=== PATIENT | female | born 1940 | race Caucasian/White ===

== ENCOUNTER 2018-06-14 10:26 | Observation (INO) | payer OTHER ==
[2018-06-14 10:57] LABS: Absolute Lymphocytes (CBC) 1.6 K/uL (0.7-4.9); Absolute Monocytes 0.9 K/uL (0.1-1.3); Absolute Neutrophil 5.1 K/uL (1.8-8.0); Basophils % 0.9 % (0-1.3); Hematocrit 40.6 % (36.0-45.0); Lymphocytes % 20.6 % (15.3-44.8); MCH 30.2 pg (27.0-35.0); MCV 88.1 fL (80-100); MPV 9.1 fL (7.6-11.3); Monocytes % 11.1 % (3.3-12.3); RBC Red Blood Cell Count 4.61 M/uL (3.86-4.86)
[2018-06-14 11:02] LABS: Protime INR 0.97
--- NOTE | 2018-06-14 11:04 | RAD REPORT ---
EXAM DESCRIPTION: CT - Ct Stroke Brain Wo Cont - 06/14/2018 10:56 am CLINICAL HISTORY: Right-sided numbness COMPARISON: 2008 TECHNIQUE: Computed axial tomography of the head was obtained. IV contrast was not requested. All CT scans are performed using dose optimization technique as appropriate and may include automated exposure control or mA/KV adjustment according to patient size. FINDINGS: An intracranial bleed is not seen . The ventricles are normal in caliber. No extra-axial fluid collection is noted. Mild low-density areas within periventricular, deep and sub cortical white matter likely represent ischemic changes secondary to small vessel disease Fluid within the sinuses/ mastoids is not seen. IMPRESSION: No acute intracranial abnormality is seen. If patient's symptoms persist MRI of the bra in would be recommended. The exam was discussed with Dr. Hahn in the Emergency Room 10:53 a.m. 05/31
[2018-06-14] MEDS ORDERED: ASPIRIN 81 MG CHEWABLE TABLET ONE (11:16)
[2018-06-14 11:20] LABS: BUN Blood Urea Nitrogen 15 mg/dL (7-18); Bicarbonate 28 mmol/L (21-32); Glucose Level 98 mg/dL (74-106); Magnesium 2.5 mg/dL (1.8-2.4); Sodium Level 142 mmol/L (136-145); Troponin (Emerg Dept Use Only) < 0.02 ng/mL (0.0-0.045)
--- NOTE | 2018-06-14 12:03 | RAD REPORT ---
EXAM DESCRIPTION: Gabriel Single View06/14/2018 11:36 am CLINICAL HISTORY: Code stroke/numbness/psoriasis COMPARISON: 2008 FINDINGS: The lungs appear clear of acute infiltrate. The heart is normal size IMPRESSION: No acute abnormalities displayed
--- NOTE | 2018-06-14 13:22 | EDPHYS ---
Physician Documentation [facility] Name: Cathi Farrar Age: 77 yrs Sex: Female : 1940 Arrival Date: 06/14/2018 Time: 10:29 Bed 6 Private MD: Mynor Rinaldi E ED Physician Mynor Hahn HPI: 06/14 10:35 This 77 yrs old Female presents to ER via Ambulatory with complaints of jr8 Unbalance, Facial numbness. 10:35 The patient's problem is reported as paresthesias, in right side of face, visual jr8 difficulty. Onset: The symptoms/episode began/occurred acutely, today, at 10:00. Duration: This was a single incident. Context: symptoms became apparent at 10:00. occurred at home, occurred while the patient was at rest. The symptoms are alleviated by nothing. The symptoms are aggravated by nothing. Associated signs and symptoms: The patient has no apparent associated signs or symptoms. Severity of symptoms: At their worst the symptoms were moderate in the emergency department the symptoms have resolved. Patient's baseline: Neuro: alert and fully oriented, Motor: no deficits, Ambulation: walks without assistance, Speech: normal. The patient has not experienced similar symptoms in the past. The patient has not recently seen a physician. History of TIA in past. Stated that she was putting something away and noticed that she had numbness to right face and double vision to right eye. Had felt unbalanced. Episode lasted for a few minutes and then started to decrease. Now asymptomatic . Historical: - Allergies: 10:40 Codeine; aj 10:40 desporaine (anesthesia); aj - Home Meds: 10:40 otesla [Active]; aj - PMHx: 10:40 TIA; psoriatic arthritis; aj - PSHx: 10:40 Knee surgery; aj - Immunization history:: Adult Immunizations up to date. - Social history:: Smoking status: Patient/guardian denies using tobacco. - Ebola Screening: : Patient negative for fever greater than or equal to 101.5 degrees Fahrenheit, and additional compatible Ebola Virus Disease symptoms Patient denies exposure to infectious person Patient denies travel to an Ebola-affected area in the 21 days before illness onset No symptoms or risks identified at this time. ROS: 10:35 Eyes: Negative for injury, pain, redness, and discharge, ENT: Negative for injury, jr8 pain, and discharge, Neck: Negative for injury, pain, and swelling, Cardiovascular: Negative for chest pain, palpitations, and edema, Respiratory: Negative for shortness of breath, cough, wheezing, and pleuritic chest pain, Abdomen/GI: Negative for abdominal pain, nausea, vomiting, diarrhea, and constipation, Back: Negative for injury and pain, MS/Extremity: Negative for injury and deformity, Skin: Negative for injury, rash, and discoloration. 10:35 Neuro: Positive for numbness, visual changes, Negative for altered mental status, dizziness, gait disturbance, headache, hearing loss, loss of consciousness, seizure activity, speech changes, syncope, near syncope, tingling, tinnitus, tremor, weakness. Exam: 10:35 Radiologist reports: No acute findings jr8 10:35 Eyes: Pupils equal round and reactive to light, extra-ocular motions intact. Lids and lashes normal. Conjunctiva and sclera are non-icteric and not injected. Cornea within normal limits. Periorbital areas with no swelling, redness, or edema. ENT: Nares patent. No nasal discharge, no septal abnormalities noted. Tympanic membranes are normal and external auditory canals are clear. Oropharynx with no redness, swelling, or masses, exudates, or evidence of obstruction, uvula midline. Mucous membranes moist. Neck: Trachea midline, no thyromegaly or masses palpated, and no cervical lymphadenopathy. Supple, full range of motion without nuchal rigidity, or vertebral point tenderness. No Meningismus. Cardiovascular: Regular rate and rhythm with a normal S1 and S2. No gallops, murmurs, or rubs. Normal PMI, no JVD. No pulse deficits. Respiratory: Lungs have equal breath sounds bilaterally, clear to auscultation and percussion. No rales, rhonchi or wheezes noted. No increased work of breathing, no retractions or nasal flaring. Abdomen/GI: Soft, non-tender, with normal bowel sounds. No distension or tympany. No guarding or rebound. No evidence of tenderness throughout. Back: No spinal tenderness. No costovertebral tenderness. Full range of motion. Skin: Warm, dry with normal turgor. Normal color with no rashes, no lesions, and no evidence of cellulitis. MS/ Extremity: Pulses equal, no cyanosis. Neurovascular intact. Full, normal range of motion. Neuro: Awake and alert, GCS 15, oriented to person, place, time, and situation. Cranial nerves II-XII grossly intact. Motor strength 5/5 in all extremities. Sensory grossly intact. Cerebellar exam normal. Normal gait. Vital Signs: 10:33 BP 134 / 89; Pulse 75; Resp 16; Pulse Ox 100% on R/A; Weight 53.52 kg; Height 5 ft. 3 aj in. (160.02 cm); 11:13 BP 123 / 71; Pulse 66; Resp 14; Pulse Ox 97% on R/A; Pain 0/10; ch 11:23 Temp 97.5(TE); la1 11:43 BP 124 / 65; Pulse 66; Resp 16; Temp 97.1; Pulse Ox 100% on R/A; la1 13:35 BP 127 / 65; Pulse 71; Resp 16; Pulse Ox 97% on R/A; la1 14:03 BP 126 / 72; Pulse 64; Resp 16; Pulse Ox 100% on R/A; la1 14:49 BP 129 / 71; Pulse 73; Resp 16; Pulse Ox 98% on R/A; la1 10:33 Body Mass Index 20.90 (53.52 kg, 160.02 cm) aj NIH Stroke Scale Scores: 10:35 NIHSS Score: 0 jr8 10:51 NIHSS Score: 0 la1 10:52 NIHSS Score: 0 la1 MDM: 10:39 Patient medically screened. [facility] 13:17 Data reviewed: vital signs, nurses notes, lab test result(s), EKG, radiologic studies, [facility] CT scan, and as a result, I will admit patient. Data interpreted: Pulse oximetry: on room air is 100 %. Interpretation: normal. Counseling: I had a detailed discussion with the patient and/or guardian regarding: the historical points, exam findings, and any diagnostic results supporting the discharge/admit diagnosis, lab results, radiology results, the need for further work-up and treatment in the hospital. ED course: Dr. Sandoval consulted and will see patient in Hospital . 06/14 10:39 Order name: Troponin (emerg Dept Use Only) [facility] 06/14 10:39 Order name: Magnesium jr 06/14 10:39 Order name: Basic Metabolic Panel 8 06/14 10:39 Order name: CBC with Diff; Complete Time: 11:31 8 06/14 10:39 Order name: Protime (+inr); Complete Time: 11:31 8 06/14 10:39 Order name: Urine Microscopic Only; Complete Time: 13:55 8 06/14 10:39 Order name: CT Stroke Brain w/o Contrast; Complete Time: 11:31 8 06/14 10:39 Order name: Stroke CXR 1 View; Complete Time: 12:14 8 06/14 10:40 Order name: Troponin (Emerg Dept Use Only); Complete Time: 11:31 EDMS 06/14 10:40 Order name: Magnesium; Complete Time: 11:31 EDMS 06/14 10:40 Order name: Basic Metabolic Panel; Complete Time: 11:31 EDMS 06/14 13:27 Order name: Cholesterol Level; Complete Time: 13:55 EDMS 06/14 13:27 Order name: Triglycerides Level; Complete Time: 13:55 EDMS 06/14 14:00 Order name: Urine Dipstick--Ancillary (enter results) 06/14 10:39 Order name: EKG; Complete Time: 10:40 8 06/14 10:39 Order name: Accucheck; Complete Time: 10:40 06/14 10:39 Order name: Cardiac monitoring; Complete Time: 10:54 06/14 10:39 Order name: EKG - Nurse/Tech; Complete Time: 10:54 06/14 10:39 Order name: IV Saline Lock; Complete Time: 10:54 06/14 10:39 Order name: Labs collected and sent; Complete Time: 10:54 06/14 10:39 Order name: NPO; Complete Time: 10:40 06/14 10:39 Order name: O2 Per Protocol; Complete Time: 10:54 06/14 10:39 Order name: O2 Sat Monitoring; Complete Time: 10:54 06/14 10:39 Order name: Stroke Swallow Screen; Complete Time: 10:54 06/14 10:39 Order name: Urine Dipstick-Ancillary (obtain specimen); Complete Time: 13:35 8 06/14 12:57 Order name: US Carotid Artery Bilateral ag 06/14 13:03 Order name: Head angio; Complete Time: 13:55 EDMS Administered Medications: 11:12 Drug: Aspirin Chewable Tablet 324 mg Route: PO; 13:30 Follow up: Response: No adverse reaction la1 13:56 Drug: Atorvastatin 40 mg Route: PO; la1 14:04 Follow up: Response: No adverse reaction la1 Point of Care Testing: Blood Glucose: 10:38 Blood Glucose: 116 mg/dL; la1 Ranges: Critical Glucose Levels:Adult <50 mg/dl or >400 mg/dl <40 mg/dl or >180 mg/dl Disposition: 06/14/18 13:21 Hospitalization ordered by Jaziel Hastings for Observation. Preliminary diagnosis is Transient cerebral ischemic attack, unspecified. - Bed requested for Telemetry/MedSurg (observation). - Status is Observation. la1 - Condition is Stable. - Problem is new. - Symptoms have improved. UTI on Admission? No NIH Stroke Scale - NIH Stroke Score Date: 06/14/2018 Time: 10:35 Total Score = 0 1a. Level of Consciousness (LOC) - 0(Alert) 1b. Level of Consciousness (LOC) (Year \T\ Age) - 0(Both) 1c. LOC Commands (Open \T\ Closes Eyes/Contract Processor) - 0(Both) 2. Best Gaze (Lateral Gaze Paresis) - 0(Normal) 3. Visual Field Loss - 0(No visual loss) 4. Facial Palsy - 0(Normal) 5a. Left Arm: Motor (10-second hold) - 0(No drift) 5b. Right Arm: Motor (10-second hold) - 0(No drift) 6a. Left Leg: Motor (5-second hold - always test supine) - 0(No drift) 6b. Right Leg: Motor (5-second hold - always test supine) - 0(No drift) 7. Limb Ataxia (finger/nose \T\ heel/tai - test with eyes open) - 0(Absent) 8. Sensory Loss (pinprick arms/legs/face) - 0(Normal) 9. Best Language: Aphasia (description/naming/reading) - 0(No aphasia) 10. Dysarthria (speech clarity - read or repeat words) - 0(Normal) 11. Extinction and Inattention (visual/tactile/auditory/spatial/personal) - 0(No abnormality) Initials: jr8 NIH Stroke Scale - NIH Stroke Score Date: 06/14/2018 Time: 10:51 Total Score = 0 1a. Level of Consciousness (LOC) - 0(Alert) 1b. Level of Consciousness (LOC) (Year \T\ Age) - 0(Both) 1c. LOC Commands (Open \T\ Closes Eyes/Contract Processor) - 0(Both) 2. Best Gaze (Lateral Gaze Paresis) - 0(Normal) 3. Visual Field Loss - 0(No visual loss) 4. Facial Palsy - 0(Normal) 5a. Left Arm: Motor (10-second hold) - 0(No drift) 5b. Right Arm: Motor (10-second hold) - 0(No drift) 6a. Left Leg: Motor (5-second hold - always test supine) - 0(No drift) 6b. Right Leg: Motor (5-second hold - always test supine) - 0(No drift) 7. Limb Ataxia (finger/nose \T\ heel/tai - test with eyes open) - 0(Absent) 8. Sensory Loss (pinprick arms/legs/face) - 0(Normal) 9. Best Language: Aphasia (description/naming/reading) - 0(No aphasia) 10. Dysarthria (speech clarity - read or repeat words) - 0(Normal) 11. Extinction and Inattention (visual/tactile/auditory/spatial/personal) - 0(No abnormality) Initials: la1 NIH Stroke Scale - NIH Stroke Score Date: 06/14/2018 Time: 10:52 Total Score = 0 1a. Level of Consciousness (LOC) - 0(Alert) 1b. Level of Consciousness (LOC) (Year \T\ Age) - 0(Both) 1c. LOC Commands (Open \T\ Closes Eyes/Contract Processor) - 0(Both) 2. Best Gaze (Lateral Gaze Paresis) - 0(Normal) 3. Visual Field Loss - 0(No visual loss) 4. Facial Palsy - 0(Normal) 5a. Left Arm: Motor (10-second hold) - 0(No drift) 5b. Right Arm: Motor (10-second hold) - 0(No drift) 6a. Left Leg: Motor (5-second hold - always test supine) - 0(No drift) 6b. Right Leg: Motor (5-second hold - always test supine) - 0(No drift) 7. Limb Ataxia (finger/nose \T\ heel/tai - test with eyes open) - 0(Absent) 8. Sensory Loss (pinprick arms/legs/face) - 0(Normal) 9. Best Language: Aphasia (description/naming/reading) - 0(No aphasia) 10. Dysarthria (speech clarity - read or repeat words) - 0(Normal) 11. Extinction and Inattention (visual/tactile/auditory/spatial/personal) - 0(No abnormality) Initials: samantha Addendum: 06/16/2018 08:05 Co-signature as Attending Physician, Mynor Hahn MD I agree with the pr assessment and plan of care. Signatures: Dispatcher [employer] EDHaylee Nevarez, RN Marjorie Menjivar ch RN Amy Soares RN Rosendo Muñoz PA PA jr8 Osman Zepeda RN RN la1 Appiah, William, MD MD pr Corrections: (The following items were deleted from the chart) 06/14 13:45 13:21 Hospitalization Ordered by Jaziel Hastings MD for Observation. dw Preliminary diagnosis is Transient cerebral ischemic attack, unspecified. Bed requested for Telemetry/MedSurg (observation). Status is Observation. Condition is Stable. Problem is new. Symptoms have improved. UTI on Admission? No. jr8 15:06 13:45 06/14/2018 13:21 Hospitalization Ordered by Jaziel Hastings MD for la1 Observation. Preliminary diagnosis is Transient cerebral ischemic attack, unspecified. Bed requested for Telemetry/MedSurg (observation). Status is Observation. Condition is Stable. Problem is new. Symptoms have improved. UTI on Admission? No. dw
--- NOTE | 2018-06-14 13:22 | ER ---
Nurse's Notes [facility] Name: Cathi Farrar Age: 77 yrs Sex: Female : 1940 Arrival Date: 06/14/2018 Time: 10:29 Bed 6 Private MD: Mynor Rinaldi E Diagnosis: Transient cerebral ischemic attack, unspecified Presentation: 06/14 10:31 Presenting complaint: Patient states: At 1000 this AM while patient was cleaning her aj ear she noticed numbness in her right cheek and inability to focus right eye. Patient then noticed she was imbalanced. Patient reports all symptoms have resolved with the exception of the residual numbness to the right cheek. Ambulated in to ER with steady gait. Transition of care: patient was not received from another setting of care. Onset of symptoms was June 14, 2018 at 10:00. Risk Assessment: Do you want to hurt yourself or someone else? Patient reports no desire to harm self or others. Initial Sepsis Screen: Does the patient meet any 2 criteria? No. Patient's initial sepsis screen is negative. Does the patient have a suspected source of infection? No. Patient's initial sepsis screen is negative. Care prior to arrival: None. 10:31 Method Of Arrival: Ambulatory 10:31 Acuity: JONE 2 aj 10:33 No acute neurological deficit is noted. Pre-hospital glucose is not applicable to this patient. Triage Assessment: 10:40 The onset of the patients symptoms was June 14, 2018 at 10:00. General: Appears in aj no apparent distress. comfortable, Behavior is cooperative, anxious. Pain: Denies pain. Neuro: Level of Consciousness is awake, alert, obeys commands, Oriented to person, place, time, situation, Appropriate for age Skip Hoist Engineer are equal bilaterally Moves all extremities. Full function Gait is steady, Speech is normal, Facial symmetry appears normal, Pupils are PERRLA, Numbness in right cheek and right zygomatic area Reports blurred vision numbness balance issues. Respiratory: Airway is patent Respiratory effort is even, unlabored, Respiratory pattern is regular, symmetrical. Derm: Skin is intact, is healthy with good turgor, Skin is pink, warm \T\ dry. normal. Stroke Activation: Symptom onset < 3 hours Physician: Stroke Attending; Name: ; Notified At: ; Arrived At: Physician: Chief Stroke Resident; Name: ; Notified At: ; Arrived At: Physician: Stroke Resident; Name: ; Notified At: ; Arrived At: Physician: ED Attending; Name: ; Notified At: ; Arrived At: Physician: ED Resident; Name: ; Notified At: ; Arrived At: Historical: - Allergies: 10:40 Codeine; aj 10:40 desporaine (anesthesia); aj - Home Meds: 10:40 otesla [Active]; aj - PMHx: 10:40 TIA; psoriatic arthritis; aj - PSHx: 10:40 Knee surgery; aj - Immunization history:: Adult Immunizations up to date. - Social history:: Smoking status: Patient/guardian denies using tobacco. - Ebola Screening: : Patient negative for fever greater than or equal to 101.5 degrees Fahrenheit, and additional compatible Ebola Virus Disease symptoms Patient denies exposure to infectious person Patient denies travel to an Ebola-affected area in the 21 days before illness onset No symptoms or risks identified at this time. Screenin:51 Abuse screen: Denies threats or abuse. Nutritional screening: No deficits noted. la1 Tuberculosis screening: No symptoms or risk factors identified. The patient has not been NPO before screening. The patient is alert, able to follow commands. The patient does not exhibit slurred or garbled speech The patient is not exhibiting difficulty speaking. The patient does not exhibit difficulty understanding words. The patient is able to swallow own secretions with no drooling or need for suction. Patient tolerated one teaspoon of water. No drooling, immediate coughing, gurgling, or clearing of the throat was noted. The patient tolerated 90mL of water. No drooling, immediate coughing, gurgling, or clearing of the throat was noted. The patient passed the bedside swallow screening. Oral medications may be given as ordered. Contact Physician for further diet orders. Provider notified of bedside swallow screening results: Rosendo GARCIA. Fall Risk None identified. Assessment: 10:38 Reassessment: pt in CT at this time. la1 10:52 The patient has not been NPO before screening. The patient is alert, and able to follow la1 commands. The patient does not exhibit slurred or garbled speech. The patient is not exhibiting difficulty speaking. The patient does not exhibit difficulty understanding words. The patient is able to swallow own secretions with no drooling or need for suction. Patient tolerated one teaspoon of water. No drooling, immediate coughing, gurgling, or clearing of the throat was noted. The patient tolerated 90mL of water. No drooling, immediate coughing, gurgling, or clearing of the throat was noted. The patient passed the bedside swallow screening. Oral medications may be given as ordered. Contact Physician for further diet orders. Provider notified of bedside swallow screening results: Rosendo GARCIA. T-PA (Activase) Screening: Contraindications: Rapidly improving condition or minor deficit: Yes. General: Appears in no apparent distress. Behavior is calm, cooperative. Pain: Denies pain. Neuro: Level of Consciousness is awake, alert, obeys commands, Oriented to person, place, time, situation, Skip Hoist Engineer are equal bilaterally Moves all extremities. Full function Gait is steady, Speech is normal, Facial symmetry appears normal, Pupils are PERRLA. Cardiovascular: Capillary refill < 3 seconds Patient's skin is warm and dry. Respiratory: Airway is patent Respiratory effort is even, unlabored, Respiratory pattern is regular, symmetrical, Breath sounds are clear bilaterally. GI: No signs and/or symptoms were reported involving the gastrointestinal system. : No signs and/or symptoms were reported regarding the genitourinary system. 11:04 Reassessment: Pt states that at 1000 she experienced diplopia in her right eye and la1 facial numbness on the right side. Pt has since resolved, no complaints at this time, NIH-0. 12:00 Reassessment: Patient appears in no apparent distress at this time. No changes from la1 previously documented assessment. Patient and/or family updated on plan of care and expected duration. Pain level reassessed. Patient is alert, oriented x 3, equal unlabored respirations, skin warm/dry/pink. 13:35 Reassessment: Patient appears in no apparent distress at this time. No changes from la1 previously documented assessment. Patient and/or family updated on plan of care and expected duration. Pain level reassessed. Patient is alert, oriented x 3, equal unlabored respirations, skin warm/dry/pink. 14:03 Reassessment: Patient appears in no apparent distress at this time. No changes from la1 previously documented assessment. Patient and/or family updated on plan of care and expected duration. Pain level reassessed. Patient is alert, oriented x 3, equal unlabored respirations, skin warm/dry/pink. Vital Signs: 10:33 BP 134 / 89; Pulse 75; Resp 16; Pulse Ox 100% on R/A; Weight 53.52 kg; Height 5 ft. 3 aj in. (160.02 cm); 11:13 BP 123 / 71; Pulse 66; Resp 14; Pulse Ox 97% on R/A; Pain 0/10; ch 11:23 Temp 97.5(TE); la1 11:43 BP 124 / 65; Pulse 66; Resp 16; Temp 97.1; Pulse Ox 100% on R/A; la1 13:35 BP 127 / 65; Pulse 71; Resp 16; Pulse Ox 97% on R/A; la1 14:03 BP 126 / 72; Pulse 64; Resp 16; Pulse Ox 100% on R/A; la1 14:49 BP 129 / 71; Pulse 73; Resp 16; Pulse Ox 98% on R/A; la1 10:33 Body Mass Index 20.90 (53.52 kg, 160.02 cm) NIH Stroke Scale Scores: 10:35 NIHSS Score: 0 jr8 10:51 NIHSS Score: 0 la1 10:52 NIHSS Score: 0 la1 ED Course: 10:29 Patient arrived in ED. mr 10:30 Mynor Rinaldi MD is Private Physician. mr 10:33 Arm band placed on left wrist. Patient placed in an exam room, Transported to CT with nurse. 10:38 Triage completed. aj 10:39 [facility] jr8 10:39 Mynor Hahn MD is Attending Physician. jr8 10:45 CT completed. Patient moved to CT via stretcher. Patient moved back from CT. cw1 10:51 Osman Zepeda, RN is Primary Nurse. la1 10:52 Placed in gown. Bed in low position. Call light in reach. engine monitor on. Pulse ox la1 on. NIBP on. 10:52 Initial lab(s) drawn, by me, sent to lab. Inserted saline lock: 18 gauge in right ch forearm, using aseptic technique. Blood collected. 10:56 CT Stroke Brain w/o Contrast In Process Unspecified. EDMS 11:35 Stroke CXR 1 View In Process Unspecified. EDMS 13:19 Radiology exam delayed due to ot in CT. sg3 13:19 CT completed. Patient moved to CT via stretcher. Patient moved back from CT. cw1 13:19 Jaziel Hastings MD is Hospitalizing Provider. jr8 13:21 Head angio In Process Unspecified. EDMS 14:49 No provider procedures requiring assistance completed. Patient admitted, IV remains in la1 place. 14:53 Ultrasound completed. Patient tolerated well. sg3 Administered Medications: 11:12 Drug: Aspirin Chewable Tablet 324 mg Route: PO; ch 13:30 Follow up: Response: No adverse reaction la1 13:56 Drug: Atorvastatin 40 mg Route: PO; la1 14:04 Follow up: Response: No adverse reaction la1 Point of Care Testing: Blood Glucose: 10:38 Blood Glucose: 116 mg/dL; la1 Ranges: Outcome: 13:21 Decision to Hospitalize by Provider. jr8 14:50 Admitted to Med/surg accompanied by tech, via wheelchair, room 230, with chart. la1 14:50 Condition: stable 14:50 Instructed on the need for admit. 15:06 Patient left the ED. la1 NIH Stroke Scale - NIH Stroke Score Date: 06/14/2018 Time: 10:35 Total Score = 0 1a. Level of Consciousness (LOC) - 0(Alert) 1b. Level of Consciousness (LOC) (Year \T\ Age) - 0(Both) 1c. LOC Commands (Open \T\ Closes Eyes/Coin Dealer) - 0(Both) 2. Best Gaze (Lateral Gaze Paresis) - 0(Normal) 3. Visual Field Loss - 0(No visual loss) 4. Facial Palsy - 0(Normal) 5a. Left Arm: Motor (10-second hold) - 0(No drift) 5b. Right Arm: Motor (10-second hold) - 0(No drift) 6a. Left Leg: Motor (5-second hold - always test supine) - 0(No drift) 6b. Right Leg: Motor (5-second hold - always test supine) - 0(No drift) 7. Limb Ataxia (finger/nose \T\ heel/tai - test with eyes open) - 0(Absent) 8. Sensory Loss (pinprick arms/legs/face) - 0(Normal) 9. Best Language: Aphasia (description/naming/reading) - 0(No aphasia) 10. Dysarthria (speech clarity - read or repeat words) - 0(Normal) 11. Extinction and Inattention (visual/tactile/auditory/spatial/personal) - 0(No abnormality) Initials: jr8 NIH Stroke Scale - NIH Stroke Score Date: 06/14/2018 Time: 10:51 Total Score = 0 1a. Level of Consciousness (LOC) - 0(Alert) 1b. Level of Consciousness (LOC) (Year \T\ Age) - 0(Both) 1c. LOC Commands (Open \T\ Closes Eyes/Coin Dealer) - 0(Both) 2. Best Gaze (Lateral Gaze Paresis) - 0(Normal) 3. Visual Field Loss - 0(No visual loss) 4. Facial Palsy - 0(Normal) 5a. Left Arm: Motor (10-second hold) - 0(No drift) 5b. Right Arm: Motor (10-second hold) - 0(No drift) 6a. Left Leg: Motor (5-second hold - always test supine) - 0(No drift) 6b. Right Leg: Motor (5-second hold - always test supine) - 0(No drift) 7. Limb Ataxia (finger/nose \T\ heel/tai - test with eyes open) - 0(Absent) 8. Sensory Loss (pinprick arms/legs/face) - 0(Normal) 9. Best Language: Aphasia (description/naming/reading) - 0(No aphasia) 10. Dysarthria (speech clarity - read or repeat words) - 0(Normal) 11. Extinction and Inattention (visual/tactile/auditory/spatial/personal) - 0(No abnormality) Initials: la1 NIH Stroke Scale - NIH Stroke Score Date: 06/14/2018 Time: 10:52 Total Score = 0 1a. Level of Consciousness (LOC) - 0(Alert) 1b. Level of Consciousness (LOC) (Year \T\ Age) - 0(Both) 1c. LOC Commands (Open \T\ Closes Eyes/Coin Dealer) - 0(Both) 2. Best Gaze (Lateral Gaze Paresis) - 0(Normal) 3. Visual Field Loss - 0(No visual loss) 4. Facial Palsy - 0(Normal) 5a. Left Arm: Motor (10-second hold) - 0(No drift) 5b. Right Arm: Motor (10-second hold) - 0(No drift) 6a. Left Leg: Motor (5-second hold - always test supine) - 0(No drift) 6b. Right Leg: Motor (5-second hold - always test supine) - 0(No drift) 7. Limb Ataxia (finger/nose \T\ heel/tai - test with eyes open) - 0(Absent) 8. Sensory Loss (pinprick arms/legs/face) - 0(Normal) 9. Best Language: Aphasia (description/naming/reading) - 0(No aphasia) 10. Dysarthria (speech clarity - read or repeat words) - 0(Normal) 11. Extinction and Inattention (visual/tactile/auditory/spatial/personal) - 0(No abnormality) Initials: laNova Signatures: Dispatcher [employer] EDHaylee Nevarez, RN Amy Cueva ch RN Mel Bettencourt mr Landon, Caridad cw1 Rosendo Tinajero PA PA jr8 Osman Zepeda RN RN la1 Joelle Zamora 3 Corrections: (The following items were deleted from the chart) 10:42 10:40 BP 134 / 89; Pulse 75bpm; Resp 16bpm; Pulse Ox 100% RA; 53.52 kg; Height aj 5 ft. 3 in.; BMI: 20.9; aj
--- NOTE | 2018-06-14 13:35 | RAD REPORT ---
EXAM DESCRIPTION: CTHead angio06/14/2018 1:21 pm CLINICAL HISTORY: Right-sided numbness COMPARISON: None TECHNIQUE: CT angiogram of the head was obtained. 50 cc Isovue 370 was intravenously. Coronal and sa gittal reconstruction was performed. 3D MIP reconstruction was performed All CT scans are performed using dose optimization technique as appropriate and may include automated exposure control or mA/KV adjustment according to patient size. FINDINGS: The basilar, internal carotid, anterior cerebral, middle cerebral and posterior cerebral a rteries are normal caliber. An aneurysm is not seen. A significant stenosis is not noted. IMPRESSION: Unremarkable CT angiogram head.
[2018-06-14 13:51] LABS: Urine Bacteria <20 /HPF (<20); Urine RBC <5 /HPF (NONE SEEN)
[2018-06-14 13:52] LABS: Urine Culture Reflex Order NOT NEEDED
[2018-06-14] MEDS ORDERED: ATORVASTATIN 20 MG TAB ONE (13:56)
--- NOTE | 2018-06-14 15:06 | RAD REPORT ---
EXAM DESCRIPTION: USCarotid Artery Bilateral06/14/2018 2:56 pm CLINICAL HISTORY: Numbness COMPARISON: 2008 FINDINGS: The velocity of the right internal carotid artery equals 60 cm/sec. The right ICA/CCA rati o 1 The velocity of the left internal carotid artery equals 51 cm/sec. The left ICA/CCA ratio 1 Minimal plaque is present within the carotid arteries. The vertebral arteries demonstrate antegrade flow IMPRESSION: Minimal plaque within the carotid arteries without evidence of a hemodynamically signifi cant stenosis
[2018-06-14 15:57] LABS: Urine Blood NEGATIVE (NEG); Urine Glucose NEGATIVE (NEG); Urine Protein NEGATIVE (NEG); Urine Specific Gravity 1.015 (1.005-1.030); Urine pH 7.5 (5.0-7.0)
[2018-06-14 16:34] VITALS: BMI 20.9
[2018-06-14] MEDS ORDERED: ONDANSETRON 4 MG/2 ML VIAL IV PRN (17:05)
[2018-06-14] MEDS ORDERED: ACETAMINOPHEN 500 MG TAB PO PRN (17:05)
[2018-06-14] MEDS: NA CHLORIDE 0.9% 1,000 ML IV SCH (17:57)
[2018-06-14] MEDS ORDERED: PNEUMOCOCCAL VACCINE 0.5 ML IMVAC ONE (18:00)
[2018-06-14 18:09] LABS: CKMB Creatine Kinase MB < 1.0 ng/mL (0.3-3.6); Creatine Phosphokinase 65 U/L (26-192); Troponin I < 0.02 ng/mL (0.0-0.045)
[2018-06-14] MEDS ORDERED: ENOXAPARIN 40 MG/0.4 ML SQ SCH (21:00)
[2018-06-14] MEDS ORDERED: ATORVASTATIN 40 MG TAB PO SCH (21:00)
[2018-06-14] MEDS: DIPYRIDAMOLE/ASPIRIN CAP ER PO SCH (23:11)
--- NOTE | 2018-06-15 01:30 | HP ---
Date of Admission: 06/14/2018 Reason For Admission: Facial numbness, rule out TIA. History Of Present Illness: A 77-year-old female with history of TIA, psoriatic arthritis, admitted initially with acute onset of paresthesia on the right side of the face with some visual changes happ en while she was trying to hang a picture on the wall today. It lasted for 5 minutes and resolved. In the ER, patient was evaluated and labs including CBC and CMP were normal except for a low GFR with negative cardiac enzymes. CT of the head with CTA was negative. Carotid Doppler showed minimal yael que within the carotid arteries without evidence of hemodynamically significant stenosis. The patien t was admitted for observation overnight. Currently, she is doing well. She has no chest pain. No abdominal pain. No fever. No chills. She had a previous TIA 10 years ago. She was seen by Dr. Rush. Workup was inconclusive. The patient does not take aspirin. Review of Systems: Otherwise as below. Past Medical History: Significant for psoriatic arthritis, TIA. Past Surgical History: Left knee surgery and broken wrist. Allergies: TO CODEINE AND BUSPIRONE. Home Medication: For Altace at this time. Social History: She is . She does have 2 kids. 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 She does not smoke, drink, use any drugs. Family History: Significant for mother of TIA. Father of prostate cancer. Review of Systems: Denies any fever, chills, night sweats, dizziness, lightheaded, headache, blurred vision. There was no change in weight or appetite. Does not have cough, sputum, shortness of breath, chest pain, palpi tations, PND, orthopnea, dyspnea on exertion, lower extremity edema. No nausea vomiting, abdominal p ain, change in bowel movement, diarrhea, or constipation. No dysuria, frequency, urgency, hematuria. There is no history of seizure, but she has history of TIA. There is no history of depression and anxiety. Physical Examination: Vital Signs: Blood pressure is 129/71, respiratory rate 16, pulse 73, temperature 97.1, saturating 9 7% on room air. General: The patient is alert and oriented x3. Does not look in any distress. HEENT: Atraumatic, normocephalic. PERRLA. Oral mucosa is moist. Neck: Supple. No JVD. No carotid bruits. Chest: Clear to auscultation. Good air entry. Heart: Regular rate and rhythm. S1, S2 normal. No gallop or murmur. Abdomen: Soft, nontender. No masses. No hepatosplenomegaly. Positive bowel sounds. Extremities: No clubbing, cyanosis, or edema. No calf tenderness. Neurologic: Grossly intact. Cranial nerve exam 2 through 12 intact. Normal sensation. Normal refl exes. Normal muscle strength. Laboratory Data: Labs done in the emergency room showed CBC within normal. CMP was normal. Low GFR 70. Her troponin was normal. Cardiac enzymes as well. CAT scan of the head, CT angio and carotid Doppler were unremarkable. Assessment And Plan: This is a 77-year-old female with history of psoriatic arthritis, transient isc hemic attack, presented with transient paresthesia on the right side of the face. 1.Rule out transient ischemic attack. The patient was discharged on Aggrenox. We will check lipid profile. If she will be placed on statin, she will need echocardiogram and MRI of the brain to compl ete workup. Those usually does not get done on the weekend and will be done hopefully on Saturday. Th e patient is willing to see. Otherwise, we can arrange for that as outpatient. At this point, michel edgar has noticed no new symptoms. No need for Neurology consult. We will do neuro check q.2 hours in the meantime. 2.Psoriatic arthritis. The patient on Otezla, the dose is unknown. We will try to obtain that. 3.Deep venous thrombosis prophylaxis, will be on Lovenox while inpatient. CHRISTINE Voice ID: [id number]
[2018-06-15 01:54] LABS: CKMB Creatine Kinase MB < 1.0 ng/mL (0.3-3.6); Creatine Phosphokinase 64 U/L (26-192); Troponin I < 0.02 ng/mL (0.0-0.045)
[2018-06-15 05:07] LABS: Absolute Lymphocytes (CBC) 1.6 K/uL (0.7-4.9); Absolute Monocytes 0.6 K/uL (0.1-1.3); Basophils % 0.9 % (0-1.3); Eosinophils % 2.6 % (0-4.4); Hematocrit 39.7 % (36.0-45.0); Lymphocytes % 25.7 % (15.3-44.8); MCH 30.2 pg (27.0-35.0); MCV 88.5 fL (80-100); Monocytes % 8.9 % (3.3-12.3); RBC Red Blood Cell Count 4.49 M/uL (3.86-4.86)
[2018-06-15 05:48] LABS: Albumin 3.3 g/dL (3.4-5.0); Bilirubin Total 0.6 mg/dL (0.2-1.0); Potassium 4.3 mmol/L (3.5-5.1); Protein, Total 6.5 g/dL (6.4-8.2)
[2018-06-15] MEDS: NA CHLORIDE 0.9% 1,000 ML IV SCH (07:13)
[2018-06-15] MEDS: DIPYRIDAMOLE/ASPIRIN CAP ER PO SCH (08:24)
[2018-06-15 09:06] VITALS: O2SAT 99
[2018-06-15 09:54] LABS: CKMB Creatine Kinase MB < 1.0 ng/mL (0.3-3.6); Creatine Phosphokinase 62 U/L (26-192); Troponin I < 0.02 ng/mL (0.0-0.045)
[2018-06-15 14:41] VITALS: BP 120/57; TEMP 97.1
[2018-06-15] MEDS ORDERED: ENOXAPARIN 40 MG/0.4 ML SQ SCH (17:55)
--- NOTE | 2018-06-16 06:57 | EKG ---
Test Date: 2018-06-14 Test Time: 10:54:10 Production Material Handler: BYRON MEASUREMENT RESULTS: Intervals: Rate: 65 VT: 138 QRSD: 114 QT: 370 QTc: 384 Stevinson: P: 72 VT: 138 QRS: -40 T: 31 INTERPRETIVE STATEMENTS: Normal sinus rhythm Left axis deviation Possible Anterior infarct, age undetermined Abnormal ECG Compared to ECG 02/25/2009 11:23:09 Myocardial infarct finding now present Ventricular premature complex(es) no longer present Electronically Signed On 06-16-18 06:51:52 CDT by Roney Leija
--- NOTE | 2018-06-16 12:45 | DS ---
Date of Discharge: 06/15/2018 Discharge Diagnoses: 1.Transient ischemic attack. 2.History of psoriatic arthritis. 3.Mild hyponatremia. 4.Borderline hypertriglyceridemia. Consult: None. Procedure: CT of the brain, carotid Doppler, CT angio, they were all negative except for a carotid D oppler showed mild within the carotid arteries without evidence of hemodynamically signifi cant stenosis. History Of Present Illness: Please refer to my history and physical note from yesterday. Hospital Course: Initially, the patient presented with nonspecific symptoms of right facial numbness , which resolved a few minutes at the house. In the ER, she was evaluated. Her CAT scan of the head was negative as well as CT angio, she had a carotid Doppler, which showed mild uptake, which was not significant in the carotid arteries. To complete workup by ordering MRI and echocardiogram, but the patient did not want to stay until Saturday as her have procedure, admitted to the hospital, s o we will discharge her home today and she will have orders for that to be done tomorrow morning. [facility] care physician to follow up on that. I also advised the patient to see Neurology given her his tory of recurrent as she had 1 episode 10 years ago. I think the patient needs to be on A ggrenox or maybe aspirin and Plavix, but I will discharge home on aspirin and she will need to make a discussion with the neurologist in the office to decide about that. In terms of her risk factors, I will check her lipid profile. Her triglycerides slightly elevated. I advised her to be on low-fat diet. Discharge Condition: Stable. Discharged Diet: Cardiac. Discharge Followup: With primary care physician this coming week. MRI and echocardiogram tomorrow a t the hospital. Need followup with Neurology on Saturday. We will give her a phone number to make an appointment. Discharge Medication: Aspirin 325 mg once a day, 30 mg orally once a day. Discharge Physical Examination: Vital Signs: Blood pressure is 121/61, respiratory rate 18, pulse 8 1, temperature 98.3. The patient is saturating at 99% on room air. General: She is alert and orient x3. Does not look in any distress. HEENT: Atraumatic, normocephalic. PERRLA. Oral mucosa is moist. Neck: Supple. No JVD. No carotid bruits. Chest: Clear to auscultation. Good air entry. Heart: Regular rate and rhythm. S1, S2 normal. No gallop or murmur. Abdomen: Soft, nontender. No masses. No hepatosplenomegaly. Positive bowel sounds. Extremities: No clubbing, cyanosis, or edema. No calf tenderness. Neurologic: Grossly intact. Cranial nerve exam 2 through 12 intact. Normal sensation. Normal refl exes. Normal muscle strength. VALENTE/MAURA Voice ID: [id number] Report ID: [id number]
== END 2018-06-15 16:15 | disposition home or self-care (01) ==
LOC: ER 10:26 → ERHOLD 13:24 → 2ND 14:51
PROVIDERS: ADMIT Internal Medicine; ATTEND Internal Medicine
DX: G45.9 Transient cerebral ischemic attack, unspecified (principal); L40.50 Arthropathic psoriasis, unspecified; E87.1 Hypo-osmolality and hyponatremia; E78.1 Pure hyperglyceridemia; Z86.73 Personal history of transient ischemic attack (TIA), and cerebral infarction without residual deficits; Z23 Encounter for immunization
CPT/HCPCS: 36415; 70450; 70496; 71045; 80048; 80053; 82465; 82550 ×3; 82553 ×3; 82962; 83721; 83735; 84478; 84484 ×4; 85025 ×2; 85610; 90670; 93005; 93880; 97163; 99285; G0009; G0378 ×2; J1650; J7030 ×2; Q9967; 81003; 81015

== ENCOUNTER 2021-07-05 13:01 | Observation (INO) | payer OTHER ==
[2021-07-05] MEDS ORDERED: HYDROMORPHONE HCL 1 MG/ML INJ IV PRN (14:45)
[2021-07-05] MEDS ORDERED: ACETAMINOPHEN 325 MG TABLET PO PRN (14:51)
[2021-07-05] MEDS ORDERED: DIPHENHYDRAMINE 25 MG TAB/CAP PO PRN (14:53)
[2021-07-05] MEDS ORDERED: NACHLORIDE 0.45% 1,000 ML IV SCH (15:00)
[2021-07-05 15:48] LABS: Absolute Lymphocytes (CBC) 1.4 K/uL (0.7-4.9); Basophils % 0.6 % (0-1.3); Hematocrit 40.6 % (36.0-45.0); Lymphocytes % 15.7 % (15.3-44.8); MPV 8.8 fL (7.6-11.3); RBC Red Blood Cell Count 4.49 M/uL (3.86-4.86)
[2021-07-05 15:57] LABS: Protime INR 0.97
--- NOTE | 2021-07-05 16:25 | RAD REPORT ---
EXAM DESCRIPTION: CT - Stone Protocol - 07/05/2021 4:09 pm CLINICAL HISTORY: Flank pain. left flank pain COMPARISON: No comparisons TECHNIQUE: Axial images were obtained without oral or IV contrast. Lack of contrast limits solid org an and vascular assessment. The [id number] spans the entirety of the system partially obscuring uppermost abdomen and lung bases. Coronal reformatted images were obtained and reviewed. All CT scans are performed using dose optimization technique as appropriate and may include automated exposure control or mA/KV adjustment according to patient size. FINDINGS: The lower lung gilmore are clear. Small hiatal hernia. Imaged portions of the liver and spleen show no suspicious findings on non-contrast imaging. The panc reas and adrenal glands are normal. No pathologic lymphadenopathy in the abdomen or pelvis. No urinary tract stones or obstructive uropathy. No bowel obstruction, free air, free fluid or abscess. Normal appendix noted.Significant descending a nd sigmoid diverticulosis coli is present. Moderate fecal retention is noted of the colon. Mild to moderate lumbosacral degenerative changes. Left hip hardware is noted. IMPRESSION: No urinary tract stones or obstructive uropathy. Prominent descending and sigmoid diverticulosis coli with fecal retention. No diverticulitis finding evident
[2021-07-05 16:28] LABS: ALT/SGPT 22 U/L (12-78); AST/SGOT 27 U/L (15-37); Alkaline Phosphatase 60 U/L (45-117); BUN Blood Urea Nitrogen 13 mg/dL (7-18); Bicarbonate 24 mmol/L (21-32); Bilirubin Direct < 0.1 mg/dL (0-0.2); Bilirubin Total 0.3 mg/dL (0.2-1.0); Glucose Level 92 mg/dL (74-106); Magnesium 2.5 mg/dL (1.8-2.4); Phosphorus 3.2 mg/dL (2.5-4.9); Potassium 3.9 mmol/L (3.5-5.1); Protein, Total 7.6 g/dL (6.4-8.2); Sodium Level 142 mmol/L (136-145)
[2021-07-05 16:31] VITALS: BMI 22.6
[2021-07-05 16:32] LABS: Urine Appearance CLEAR (Clear); Urine Bilirubin NEGATIVE (Negative); Urine Blood NEGATIVE (Negative); Urine Color YELLOW (Yellow); Urine Glucose NEGATIVE (Negative); Urine Protein NEGATIVE (Negative); Urine Specific Gravity <=1.005 (1.005-1.030); Urine Urobilinogen 0.2 mg/dL (0.2-1.0)
[2021-07-05 16:33] LABS: Urine Microscopic Reflex ORDER UMIC
[2021-07-05 16:46] LABS: Urine Bacteria <20 /HPF (<20); Urine RBC <5 /HPF (NONE SEEN)
--- NOTE | 2021-07-05 18:26 | ER ---
Nurse's Notes [facility] Name: Cathi Farrar Age: 81 yrs Sex: Female : 1940 Arrival Date: 07/05/2021 Time: 13:04 Bed Direct Admit Private MD: Diagnosis: Acute pain, not elsewhere classified Presentation: 07/05 13:22 Chief complaint: Patient states: Left side pain x 3 days, reports turning and sudden jl7 pain set in, Dr. Allison's office looked at urine and there was blood in the urine, Dr. Allison sent for direct admit for intractable pain. Coronavirus screen: Vaccine status: Patient reports receiving the 2nd dose of the covid vaccine. Pfizer. Ebola Screen: No symptoms or risks identified at this time. Initial Sepsis Screen: Does the patient meet any 2 criteria? No. Patient's initial sepsis screen is negative. Does the patient have a suspected source of infection? No. Patient's initial sepsis screen is negative. Risk Assessment: Do you want to hurt yourself or someone else? Patient reports no desire to harm self or others. Onset of symptoms was July 02, 2021. Care prior to arrival: None. 13:22 Method Of Arrival: Ambulatory [facility] 13:22 Acuity: JONE 3 jl7 Triage Assessment: 13:29 General: Appears in no apparent distress. uncomfortable, Behavior is calm, cooperative, jl7 appropriate for age. Pain: Complains of pain in right flank Pain currently is 7 out of 10 on a pain scale. Historical: - Allergies: 13:29 Codeine; jl7 13:29 desporaine (anesthesia); jl7 - Home Meds: 13:29 Prolia subcutaneous [Active]; Folic Acid Oral [Active]; jl7 - PMHx: 13:29 Psoriatic Arthritis; TIA; Osteoporosis; jl7 - PSHx: 13:29 right knee; left hip; jl7 - Immunization history:: Adult Immunizations up to date, Client reports receiving the 2nd dose of the Covid vaccine, Pfizer. - Social history:: Smoking status: Patient denies any tobacco usage or history of. Assessment: 18:14 Reassessment: see [facility] for pt assessment. oh Vital Signs: 13:22 BP 141 / 74; Pulse 78; Resp 17; Temp 98.4; Pulse Ox 98% ; Weight 59.87 kg; Height 5 ft. jl7 4 in. (162.56 cm); Pain 7/10; 18:12 BP 144 / 55; Pulse 63; Resp 17; Pulse Ox 98% on R/A; oh 13:22 Body Mass Index 22.66 (59.87 kg, 162.56 cm) jl7 ED Course: 13:04 Patient arrived in ED. as 13:29 Triage completed. jl7 13:29 Arm band placed on right wrist. jl7 15:09 Trupti Weiss, RN is Primary Nurse. oh 18:14 IV discontinued, bleeding controlled, Pressure dressing applied. oh 18:25 Oscar Allison MD is Hospitalizing Provider. iw Administered Medications: No medications were administered Outcome: 18:14 Discharged to home oh 18:14 Condition: stable 18:14 Discharge instructions given to patient. 18:25 Decision to Hospitalize by Provider. iw 18:26 Patient left the ED. iw Signatures: Claudia Matthews Irene, RN RN iw Chriss Olvera RN RN [facility] Trupti Weiss, RN RN oh
[2021-07-05 18:30] VITALS: TEMP 98.4; O2SAT 98
[2021-07-05 18:32] VITALS: BP 144/55
--- NOTE | 2021-07-05 21:12 | P.DS ---
Admission Date: 07/05/21 Discharge Date: 07/05/21 Disposition: ROUTINE DISCHARGE Discharge Condition: GOOD Brief History of Present Illness: MS. ROMEO HAD INTRACTABLE PAIN L SIDE RIB CAGE. HER PAIN WAS GONE YESTERDAY BUT SHE CAME BACK TO OFFICE WITH SEVERE PAIN. ASKED ABOUT RENAL STONES BUT HER PAIN IS LOWER L RIB CAGE AFTER SHE PULLED THE SIDE IN THE CAR. HEMATURIA WAS THERE ON DIP STICK BUT NEG STONE PROTOCOL. THERE ARE NO BEDS IN HOSPITAL. SHE DID NOT WANT TO STAY IN ER AND SO SHE WILL GO HOME ON TRAMADOL AND I WILL SEE HER NEXT WEEK. Vital Signs/Physical Exam: Temp Pulse Resp BP Pulse Ox 98.4 F 63 17 144/55 H 98 07/05/21 13:22 07/05/21 18:12 07/05/21 18:12 07/05/21 18:12 07/05/21 16:00 Laboratory Data at Discharge: WBC 8.90 K/uL (4.3-10.9) 07/05/21 15:30 Hgb 13.7 g/dL (12.0-15.0) 07/05/21 15:30 Hct 40.6 % (36.0-45.0) 07/05/21 15:30 Plt Count 194 K/uL (152-406) 07/05/21 15:30 PT 11.1 SECONDS (9.5-12.5) 07/05/21 15:30 INR 0.97 07/05/21 15:30 APTT 27.7 SECONDS (24.3-36.9) 07/05/21 15:30 Sodium 142 mmol/L (136-145) 07/05/21 15:30 Potassium 3.9 mmol/L (3.5-5.1) 07/05/21 15:30 BUN 13 mg/dL (7-18) 07/05/21 15:30 Creatinine 0.76 mg/dL (0.55-1.3) 07/05/21 15:30 Glucose 92 mg/dL (74-106) 07/05/21 15:30 Phosphorus 3.2 mg/dL (2.5-4.9) 07/05/21 15:30 Magnesium 2.5 mg/dL (1.8-2.4) H 07/05/21 15:30 Total Bilirubin 0.3 mg/dL (0.2-1.0) 07/05/21 15:30 AST 27 U/L (15-37) 07/05/21 15:30 ALT 22 U/L (12-78) 07/05/21 15:30 Alkaline Phosphatase 60 U/L (45-117) 07/05/21 15:30 Home Medications: Apremilast [Otezla] 30 mg PO DAILY 06/14/18 Aspirin 325 mg PO DAILY #30 tablet 06/15/18 Followup: Oscar Allison MD [Primary Care Provider] -
[2021-07-11 15:06] LABS: Vitamin D 1,25-Dihydroxy Total 70 pg/mL (18-72); Vitamin D,1,25-OH2, D2 <8 pg/mL
== END 2021-07-05 18:10 | disposition home or self-care (01) ==
LOC: EDSTATUS 13:01 → ER 13:01 → ERHOLD 13:02
PROVIDERS: ADMIT Internal Medicine; ATTEND Internal Medicine
DX: R07.81 Pleurodynia (principal); R31.9 Hematuria, unspecified; M81.0 Age-related osteoporosis without current pathological fracture; L40.50 Arthropathic psoriasis, unspecified; Z86.73 Personal history of transient ischemic attack (TIA), and cerebral infarction without residual deficits; Z88.6 Allergy status to analgesic agent
CPT/HCPCS: 85025; 80048; 36415; 83735; 84100; 85610; 80076; 85730; 82652; 84443; 82607; 76377; 74176; 99281; U0003; G0378 ×2; 81003; 81015

== ENCOUNTER 2024-11-23 15:12 | Observation (INO) | payer OTHER ==
[2024-11-23] MEDS ORDERED: ACETAMINOPHEN 325 MG TABLET PO PRN (17:00)
[2024-11-23] MEDS ORDERED: DIPHENHYDRAMINE 25 MG TAB/CAP PO PRN (17:01)
[2024-11-23] MEDS ORDERED: LOPERAMIDE HCL 2 MG CAPSULE PO PRN (17:03)
[2024-11-23] MEDS ORDERED: ONDANSETRON 4 MG (ODT) TAB PO PRN (17:04)
[2024-11-23] MEDS ORDERED: POLYETHYL GLY 3350 17 GM/DOSE PO PRN (17:04)
[2024-11-23] MEDS ORDERED: HYDROMORPHONE HCL 1 MG/ML INJ IV PRN (17:11)
[2024-11-23 17:16] LABS: Absolute Basophils 0.1 K/uL (0-0.5); Absolute Eosinophils 0.2 K/uL (0-0.5); Absolute Lymphocytes (CBC) 1.3 K/uL (0.7-4.9); Absolute Monocytes 1.3 K/uL (0.1-1.3); Absolute Neutrophil 6.2 K/uL (1.8-8.0); Basophils % 0.9 % (0-1.3); Eosinophils % 2.5 % (0-4.4); Hematocrit 37.8 % (36.0-45.0); Hemoglobin 12.8 g/dL (12.0-15.0); Lymphocytes % 14.2 % (15.3-44.8); MCH 32.1 pg (27.0-35.0); MCHC 33.9 g/dL (32.0-36.0); MCV 94.6 fL (80-100); MPV 8.4 fL (7.6-11.3); Monocytes % 14.5 % (3.3-12.3); Neutrophils % 67.9 % (41.7-73.7); Nucleated Red Blood Cells % 0.1 % (0-0); Platelets 264 thou/uL (152-406); Red Cell Distribution Width 15.7 % (12.1-15.2)
[2024-11-23 17:58] VITALS: BMI 22.6
[2024-11-23] MEDS: METRONIDAZOLE 500mg IVPB 500 MG/100 ML BAG IV SCH (18:16)
[2024-11-23] MEDS: NACHLORIDE 0.45% 1,000 ML IV SCH (18:16)
[2024-11-23] MEDS: CIPROFLOXACIN 400mg IV 400 MG/200 ML BAG IV SCH (18:16)
[2024-11-23 18:33] LABS: ALT/SGPT 22 U/L (13-56); AST/SGOT 24 U/L (15-37); Albumin 3.7 g/dL (3.4-5.0); Alkaline Phosphatase 78 U/L (45-117); Anion Gap 10.7 mEq/L (5.0-15.0); BUN Blood Urea Nitrogen 17 mg/dL (7-18); Bicarbonate 26 mEq/L (21-32); Bilirubin Total 0.3 mg/dL (0.2-1.0); Globulin 3.6 g/dL (2.3-3.5); Glomerular Filtration Rate 65 ml/min (=/>90); Glucose Level 97 mg/dL (74-106); Magnesium 2.4 mg/dL (1.6-2.4); Phosphorus 3.3 mg/dL (2.5-4.9); Potassium 3.7 mEq/L (3.5-5.1); Protein, Total 7.3 g/dL (6.4-8.2); Sodium Level 141 mEq/L (136-145)
[2024-11-23 18:38] LABS: Bilirubin Direct < 0.2 mg/dL (0-0.2); Bilirubin Indirect, Calculated 0.1 mg/dL (0.2-0.8)
[2024-11-23 18:45] VITALS: O2SAT 98
[2024-11-23] MEDS ORDERED: FLU (Fluarix Triv) TS24-25(6MOS UP)/PF 45 MCG/0.5 ML Syringe IM ONE (18:45)
--- NOTE | 2024-11-23 19:40 | RAD REPORT ---
EXAM: Chest Pa And Lat (2 Views) HISTORY: 84 years Female abdominal pain COMPARISON: 07/03/2021 FINDINGS: LUNGS/PLEURA: The lungs are clear. No pleural effusions or pneumothorax. No pulmonary edema. MEDIASTINUM: The mediastinal silhouette is within normal limits CARDIAC: The cardiac silhouette is within normal limits. UPPER ABDOMEN: No significant abnormality. BONES: No acute abnormality. LINES/TUBES/OTHER: N/A IMPRESSION: No evidence of acute cardiopulmonary disease.
[2024-11-23] MEDS: POTASSIUM CL SA 10 MEQ TAB PO ONE (20:00)
[2024-11-23] MEDS: ENOXAPARIN 40 MG/0.4 ML SQ SCH (21:00)
--- NOTE | 2024-11-23 22:03 | RAD REPORT ---
EXAMINATION: CT ABDOMEN AND PELVIS WITH CONTRAST CLINICAL INDICATION: Female, 84 years old.RLQand LLQ pain TECHNIQUE: CT abdomen and pelvis was performed, after the administration of IV contrast, as per [facility] protocol. Axial, sagittal and coronal reconstructions were obtained. One or more of the following dose reduction techniques were used: Automated exposure control, adjustment of the mA and/o r kV according to patient size, and/or iterative reconstruction. Unless otherwise specified, incidental findings do not require dedicated imaging follow-up. [id number]. COMPARISON: 07/05/2021 FINDINGS: LOWER CHEST: No acute process identified.No significant pericardial effusion. Small hiatal hernia wit h circumferential thickening of the esophagus which could reflect esophagitis. UPPER GI: No significant abnormality. LIVER: Hepatic steatosis, but otherwise unremarkable. GALLBLADDER/BILE DUCTS: No biliary ductal dilatation.? PANCREAS: No mass, ductal dilation, or marya-pancreatic fluid. SPLEEN: Low density splenic lesion(s), statistically benign. ADRENALS: No adrenal masses. KIDNEYS AND URETERS: No hydronephrosis.No suspicious renal mass.No renal calculi. ABDOMINAL AORTA AND OTHER VESSELS: Mild atherosclerotic changes. PERITONEUM: Homogeneous attenuation low-density structures in the right lower quadrant. These are clu stered in the region of the ileocolic mesentery. The largest measures 4.9 cm. LYMPH NODES: No pathologic lymphadenopathy. ABDOMINAL WALL: Unremarkable SMALL BOWEL/COLON: Confirmatory changes along the undersurface of the distal sigmoid colon. This is c onsistent with nonperforated diverticulitis.Nonvisualized appendix but no secondary signs of acute appendicitis. URINARY BLADDER: Underdistended but grossly unremarkable. REPRODUCTIVE ORGANS: No pathologic process. MUSCULOSKELETAL: Chronic L3 deformity. Left hip arthroplasty. ADDITIONAL FINDINGS: None. IMPRESSION: 1. Nonperforated diverticulitis at the distal sigmoid. 2. Low-density cystic collections in the ileocolic mesentery may represent lymphoceles and are not si gnificantly changed compared with 07/05/2021. They are better seen on this exam as it is with contrast and the location of the structures is more obvious. With nearly 4 years of stability, these are unlikely of clinical significance.
[2024-11-24] MEDS ORDERED: ONDANSETRON 4 MG/2 ML VIAL IV PRN (02:32)
[2024-11-24 04:55] LABS: Absolute Eosinophils 0.3 K/uL (0-0.5); Absolute Lymphocytes (CBC) 1.1 K/uL (0.7-4.9); Absolute Monocytes 1.1 K/uL (0.1-1.3); Absolute Neutrophil 3.9 K/uL (1.8-8.0); Basophils % 0.7 % (0-1.3); Eosinophils % 5.3 % (0-4.4); Hematocrit 34.5 % (36.0-45.0); Hemoglobin 11.7 g/dL (12.0-15.0); Lymphocytes % 17.4 % (15.3-44.8); MCH 32.4 pg (27.0-35.0); MCV 95.1 fL (80-100); MPV 8.3 fL (7.6-11.3); Neutrophils % 59.6 % (41.7-73.7); Nucleated Red Blood Cells % 0.2 % (0-0); Platelets 253 thou/uL (152-406); RBC Red Blood Cell Count 3.63 M/uL (3.86-4.86); Red Cell Distribution Width 15.2 % (12.1-15.2)
[2024-11-24 05:28] LABS: Anion Gap 10.8 mEq/L (5.0-15.0); Magnesium 2.4 mg/dL (1.6-2.4); PT Prothrombin Time 12.1 SECONDS (10.0-13.0); Potassium 3.8 mEq/L (3.5-5.1); Protime INR 1.06; Thyroid Stimulating Hormone 2.29 uIU/mL (0.358-3.740)
[2024-11-24 08:39] VITALS: BP 121/61; TEMP 97.9
== END 2024-11-24 09:02 | disposition home or self-care (01) ==
LOC: 2ND 15:14 → INTOOBSV 15:14
PROVIDERS: ADMIT Internal Medicine; ATTEND Internal Medicine
DX: K57.32 Diverticulitis of large intestine without perforation or abscess without bleeding (principal)
CPT/HCPCS: 93005; 85025 ×2; 80048 ×2; 36415 ×2; 83735 ×2; 84100; 85610; 80076; 85730; 82652; 84443; 82607; 74177; 71046; Q9967; J0744; G0378; G0379; J1650